=== PATIENT | female | born 1990 | race Caucasian/White ===

== ENCOUNTER 2016-07-23 21:00 | Observation (INO) ==
[2016-07-23 21:42] LABS: Bilirubin,Urine Negative (Negative); Blood,Urine Negative (Negative); Clarity,Urine Cloudy (Clear); Color,Urine Yellow (Yellow); Glucose,Urine (UA) Normal (Normal); Ketones,Urine Negative (Negative); Leukocyte Esterase,Urine Moderate (Negative); Nitrite,Urine Negative (Negative); PH,Urine 6.5 pH Units (5.0-8.0); Protein,Urine Negative (Neg-Trace); Specific Gravity,Urine 1.006 (1.010-1.025); Urobilinogen,Urine Normal (Normal)
[2016-07-23 21:43] LABS: Bacteria,Urine Few per hpf (None-Few); Hyaline Casts,Urine None Seen per lpf (None-Few); RBC,Urine 0-3 per hpf (0-3); Squamous Epithelial Cell,Urine Many per lpf (None-Few)
--- NOTE | 2016-07-27 15:43 | Discharge Summary ---
Date of Encounter: 07/23/16 Time of Encounter: 23:30 - Discharge Diagnosis (1) 36 weeks gestation of Priority: Secondary Status: Acute (2) uterine contractions in third trimester, antepartum Priority: Primary Status: Resolved - Discharge Medications Home Medications: Ferrous Sulfate 1 tab PO DAILY 07/23/16 [History] Flintstones Complete 1 tab PO DAILY 07/23/16 [History] Allergies/Adverse Reactions: Allergies No Known Allergies Allergy (Verified 07/24/16 22:33) Data Procedures and tests throughout hospitalization: Laboratory Tests 07/23/16 21:20 Urine Color Yellow Urine Clarity Cloudy A Urine pH 6.5 Ur Specific [place] 1.006 L Urine Protein Negative Urine Glucose (UA) Normal Urine Ketones Negative Urine Blood Negative Urine Nitrite Negative Urine Bilirubin Negative Urine Urobilinogen Normal Ur Leukocyte Esterase Moderate H Urine Microscopic RBC 0-3 Urine Microscopic WBC 5-15 H Ur Squamous Epith Cells Many H Urine Bacteria Few Hyaline Casts None Seen Ur Culture Indicated? YES A Date of admission: 07/23/16 21:00 Primary care physician: PCP NO - Patient Status Disposition: Home, Self-Care Condition: Good Functional capacity at discharge: independent ambulation Overall status at discharge: patient is progressing back to baseline - Discharge Instructions Follow Up With: NO,PCP [Primary Care Provider] - Additional Instructions: LABOR AND DELIVERY DISCHARGE INSTRUCTIONS Signs and Symptoms to be Reported to your Doctor Immediately: * Sudden gush, continuous or intermittent lead of fluid from vagina (note the time of gush and color of fluid) * Onset of bright red vaginal bleeding with or without pain (if you had a vaginal exam during this visit you may notice some dark red spotting. This is normal.) * Lower abdominal cramping or backache that is premenstrual-like feeling. * More than 6 contractions in one hour. * Burning during urination, having to urinate more frequently or pain in your mid-back. * A change in the baby's activity. This could be an increase or decrease in activity. * Severe headache which does not go away with tylenol. * Sudden swelling in the face, hands, arms and/or legs. * Upper abdominal pain - sometimes associated with heartburn or nausea and is not relieved by Maalox, Mylanta or Tums. * Dizziness or blurred vision or visual disturbances (seeing stars/lights). * Kick Counts One hour after a meal, lay down on one side in a quiet place. Count the number of keiko the baby moves during an hour. If less than 6 movements, notify your physician. Diet: *Force fluids - 8-10 tall glasses of fluid per day. May include popsicles and jello. *Limit caffeine - this includes chocolate, coffee, tea, any soft drink containing such as all anitha, Jero Yellow and Mountain Dew - Diet and Activity Activity: increase activity as tolerated Diet: advance to your usual diet Hospital Course DOCUMENT REVIEW ATTORNEY Time Attestation: Total time spent providing and/or coordinating discharge services: Exam - Constitutional Vitals: per nursing - VTE Reasons for not Prescribing Prophylaxis: Treatment not Indicated - Low risk for VTE - Attending Attestation kathryn zarate md facog
== END 2016-07-23 23:36 | disposition home or self-care (01) ==
LOC: 1NENULAB
PROVIDERS: ADMIT Obstetrics & Gynecology; ATTEND Obstetrics & Gynecology

== ENCOUNTER 2016-07-24 22:25 | Observation (INO) ==
--- NOTE | 2016-07-25 | OB/GYN History & Physical ---
Date of Encounter: 07/25/16 Time of Encounter: 23:55 Assessment and Plan (1) First in adolescent 16 years of age or older in third trimester Status: Acute (2) 36 weeks gestation of Status: Acute (3) uterine contractions in third trimester, antepartum Status: Acute Patient was observed for 3 hours allowed to ambulate for one of those hours. She had made no cervical change from admission and will be discharged home labor precautions given and instructed to return to labor and delivery if contractions get more comfortable or keep scheduled appointment in the office History of Present Illness HPI: Ms. Domingo is a 25 year old female 1 para 0 at 36-6/7 weeks by last menstrual period equal to a 12-5/7 week ultrasound who presents to labor and delivery with complaint of contractions every 2-3 minutes with intense vaginal pressure. Patient was here last night with similar complaints was not making any cervical change and was discharged home. Patient did have intercourse earlier this evening. Patient does not appear to be uncomfortable when I talked on the phone and does not appear to be uncomfortable until family is around that she acts miserable. She is valarie every 2 minutes issues during this last night also. Patient was 1 cm earlier in the week was 2 cm last night and is 2-3 cm now. Patient does live 45 minutes to an hour from the hospital did recommend we get her up and walk around for a while to make sure she is not making any cervical change before we possibly sent home or admit. She denies any leaking of fluid vaginal bleeding or discharge. Patient does have a history of a left nephrectomy only has one kidney showing signs of hydronephrosis. We would benefit with the maternal- medicine Department to determine that the patient needs to be delivered early. Past Med Surg Social Fam HX - Past Medical History Medical history: no medical history Psychiatric history: no psych history - Past Surgical History Surgical History: other (Left nephrectomy) - Social History Smoking Status: Never smoker Smokeless Tobacco Status: No Alcohol use: none Drug use: none Occupational status: employed Current living situation: Home - Independent Activity Level: Independent ambulation Recent Out of Country Travel Within the Last 8 Weeks: No Exposure or Possible Exposure to Illness During Travel: No - Family History Maternal Grandmother Adopted: No Living Status: Still Living Hx Family Cardiac Disorders: Yes (HTN) Hx Family Respiratory Disorders: No Hx Family Cancer: No Hx Family GI Disorders: No Hx Family Endocrine Disorder: No Hx Family Neuromuscular Disorders: No Hx Family Neurologic Disorders: No Hx Family HEENT Disorders: No Hx Family Autoimmune Disorders: No Obstetrical History - Pregnancies : 1 Para: 0 Medications and Allergies Ferrous Sulfate 1 tab PO DAILY 07/23/16 [History] Flintstones Complete 1 tab PO DAILY 07/23/16 [History] Allergies No Known Allergies Allergy (Verified 07/24/16 22:33) Review of System OB All systems PM: reviewed and no additional remarkable complaints except as stated - Genitourinary Genitourinary: other (Contractions every 10 minutes feeling vaginal pressure) Exam - Constitutional Constitutional: well developed, well nourished, average body habitus, mild distress - HEENT HEENT: PERRL, Mucus Membranes Moist - Neck Neck exam: full ROM - Lungs Respiratory exam: CTAB - Cardiovascular Cardiovascular exam: RRR - Abdomen Abdomen: Present: gravid - Extremities Extremities exam: full ROM - Cervix Dilation: 2 (2-3) Effacement: 80 Station: -2 - Comments Comments: heart tones 140s reactive contractions every 2 minutes Results All other labs normal. - VTE Reasons for not Prescribing Prophylaxis: Treatment not Indicated - Low risk for VTE
== END 2016-07-25 01:15 | disposition home or self-care (01) ==
LOC: 1NENULAB
PROVIDERS: ADMIT Obstetrics & Gynecology; ATTEND Obstetrics & Gynecology

== ENCOUNTER 2016-08-05 22:53 | Observation (INO) ==
--- NOTE | 2016-08-05 23:43 | OB/GYN Progress Note ---
Date of Encounter: 08/05/16 Time of Encounter: 23:40 - Assessment and Plan (1) Fall Current Visit: Yes Status: Acute -Dr. Nj patient. -Sounds more like an environmental factor of fall-lightheaded, hot shower, slipping than actual pathological reason for fall. -Denies cardiac history. No afib, carotid bruits. States she might have hit head -no visible sign or pain with palpation of head or neck. No pain in elbow. Mild pain in R paraspinal muscles. No bruising and patient able to sit up without difficulty - evaluation WNL, BP normalized. Cervix dialation same as last visit 3cm. -Patient feels comfortable being discharged home. Mother in room states that she will watch her. -Evaluate for anemia/reasons for lightheadedness, last H and H 9.8, will check electrolytes, and mom is 0 negative, so will evaluate for maternal- blood mixing. Plan -Labs: H&H, BMP, KB test -Recheck cervix in 1 hour for change -[place], BP -Discharge home under close supervision of mother. Qualifiers: Encounter type: initial encounter Qualified Code(s): W19.XXXA - Unspecified fall, initial encounter (2) 38 weeks gestation of Current Visit: Yes Status: Acute Subjective - Subjective Principal diagnosis: Fall Interval history: 26F, , 38w 5d, GBS negative, HPV positive, O negative, PMH L nephrectomy presents to be evaluated after recent fall. 3 hours ago patient was taking a hot shower and washing her face when she felt light headed and fell back in the shower, landing on her R elbow and R side of her back. She called her mom and she helped her up then brought her to be evaluated. This is her first episode. Denies LOC. States she thought she might have hit her head. Admits to frontal headache and R back pain that is bearable and not getting worse. Denies blurry vision, trouble hearing, neck pain, CP, SOB, abdominal pain, urinary problems. Denies cardiac history. She is resting comfortably in bed and blood pressure decreased from 140/80 to 120/64. She feels baby moving. Antepartum ROS: movement normal, contractions, no loss of fluid, no vaginal bleeding Objective - Vital Signs Vital Signs: Intake and Output 08/05/16 08/05/16 08/05/16 07:59 15:59 23:59 Other: Weight 59.6 kg Patient Weight 08/05/16 23:59 Weight 59.6 kg - Exam FHR: auscultation normal Auscultation: bilateral: normal Abdomen: Present: normal appearance, soft, gravid. Absent: tenderness Uterus: Present: normal Cervical dilation: 3cm per nurse Cervix effacement: 80% per nurse
[2016-08-06 00:10] LABS: Basophils # 0.1 K/mcL (0.0-0.2); Basophils % 0.5 %; Eosinophils # 0.2 K/mcL (0.0-0.6); Eosinophils % 1.4 %; Hemoglobin 11.4 g/dL (11.5-15.4); Immature Granulocytes % 1.7 % (0-4); Lymphocytes # 2.6 K/mcL (0.6-4.6); Mean Corpuscular HGB Conc 33.5 g/dL (31.6-35.5); Mean Corpuscular Hemoglobin 28.4 pg (28.0-33.3); Mean Corpuscular Volume 84.6 fL (83.0-100.0); Mean Platelet Volume 9.4 fL (9.4-12.4); Monocytes # 0.7 K/mcL (0.0-1.3); Monocytes % 5.5 %; Neutrophils # 9.1 K/mcL (1.6-8.9); Platelet Count 326 K/mcL (140-400); Red Blood Count 4.02 M/mcL (3.82-4.97); Red Cell Distribution Width 13.7 % (11.5-14.5); Segmented Neutrophils % 70.9 %
[2016-08-06 00:17] LABS: BUN/Creatinine Ratio 8 (6-26); Blood Urea Nitrogen 6 mg/dL (7-20); Calcium 8.8 mg/dL (8.6-10.8); Carbon Dioxide 19 mEq/L (19-29); Chloride 109 mEq/L (98-109); Glucose 85 mg/dL (70-99); Osmolality,Calculated 283 (280-300); Potassium 3.5 mEq/L (3.5-4.5); Sodium 138 mEq/L (136-145); eGFR For African Americans > 60 (> 60); eGFR For Non-African Americans > 60 (> 60)
[2016-08-06 01:09] LABS: Kleihauer-Betke-Fet Hgb Qnt 0 mL FMH (0-0)
--- NOTE | 2016-08-06 01:55 | OB/GYN Progress Note ---
Date of Encounter: 08/06/16 Time of Encounter: 01:53 - Assessment and Plan (1) Non-stress test reactive on surveillance Current Visit: Yes Status: Acute heart tracing evaluated per request nursing staff. Category 1 heart tracing is noted. (2) Fall Current Visit: Yes Status: Acute We will monitor per protocol Qualifiers: Encounter type: initial encounter Qualified Code(s): W19.XXXA - Unspecified fall, initial encounter (3) 38 weeks gestation of Current Visit: Yes Status: Acute Subjective - Subjective Interval history: Called by nursing staff to review heart tracing. heart tracing reveals baseline to be in the 120 with accelerations to 170. Patient is having contractions with no decelerations. heart tracing is consistent with category 1. Discussed with nursing staff. Objective - Vital Signs Vital Signs: Intake and Output 08/05/16 08/05/16 08/06/16 15:59 23:59 07:59 Other: Weight 59.6 kg - Exam FHR: category 1 - Labs Labs: Abnormal lab results WBC 12.8 K/mcL (4.3-11.1) H 08/05/16 23:33 Hgb 11.4 g/dL (11.5-15.4) L 08/05/16 23:33 Hct 34.0 % (35.3-44.9) L 08/05/16 23:33 Neutrophils # 9.1 K/mcL (1.6-8.9) H 08/05/16 23:33 BUN 6 mg/dL (7-20) L 08/05/16 23:33
--- NOTE | 2016-08-06 02:55 | OB/GYN Progress Note ---
Date of Encounter: 08/06/16 Time of Encounter: 02:53 - Assessment and Plan (1) Fall Current Visit: Yes Status: Acute -Dr. Nj patient. -Sounds more like an environmental factor of fall-lightheaded, hot shower, slipping than actual pathological reason for fall. -Denies cardiac history. No afib, carotid bruits. States she might have hit head -no visible sign or pain with palpation of head or neck. No pain in elbow. Mild pain in R paraspinal muscles. No bruising and patient able to sit up without difficulty - evaluation WNL, BP normalized. Cervix dialation same as last visit 3cm. -Patient feels comfortable being discharged home. Mother in room states that she will watch her. -Evaluate for anemia/reasons for lightheadedness, last H and H 9.8, will check electrolytes, and mom is 0 negative, so will evaluate for maternal- blood mixing. Plan -Labs: H&H, BMP, KB test -Recheck cervix in 1 hour for change -[place], BP -Discharge home under close supervision of mother. Qualifiers: Encounter type: initial encounter Qualified Code(s): W19.XXXA - Unspecified fall, initial encounter (2) 38 weeks gestation of Current Visit: Yes Status: Acute -patient doing well. Cervix has been 3cm dialated and 80% effaced throughout the 4 hours. She feels baby. Lab values discussed. Patient would like to go home. Subjective - Subjective Interval history: Patient doing well throughout stay. Resting comfortably in bed. HR WNL and mother feels baby moving. She feels like she is back to baseline. Has no questions or concerns at this time. Would like to go home. Antepartum ROS: movement normal, contractions, no new complaints, no vaginal bleeding Objective - Vital Signs Vital Signs: Intake and Output 08/05/16 08/05/16 08/06/16 15:59 23:59 07:59 Other: Weight 59.6 kg - Labs Labs: Abnormal lab results WBC 12.8 K/mcL (4.3-11.1) H 08/05/16 23:33 Hgb 11.4 g/dL (11.5-15.4) L 08/05/16 23:33 Hct 34.0 % (35.3-44.9) L 08/05/16 23:33 Neutrophils # 9.1 K/mcL (1.6-8.9) H 08/05/16 23:33 BUN 6 mg/dL (7-20) L 08/05/16 23:33
--- NOTE | 2016-08-06 02:59 | Discharge Summary ---
Date of Encounter: 08/06/16 - Discharge Diagnosis (1) Fall Status: Acute Qualifiers: Encounter type: initial encounter Qualified Code(s): W19.XXXA - Unspecified fall, initial encounter (2) 38 weeks gestation of Status: Acute - Discharge Medications Home Medications: Ferrous Sulfate 1 tab PO DAILY 07/23/16 [History] Flintstones Complete 1 tab PO DAILY 07/23/16 [History] Allergies/Adverse Reactions: Allergies No Known Allergies Allergy (Verified 08/05/16 23:07) Data Procedures and tests throughout hospitalization: Laboratory Tests 08/05/16 08/05/16 23:33 23:33 WBC 12.8 H RBC 4.02 Hgb 11.4 L Hct 34.0 L MCV 84.6 MCH 28.4 MCHC 33.5 RDW 13.7 Plt Count 326 MPV 9.4 Immature Gran % 1.7 Seg Neutrophils % 70.9 Lymphocytes % 20.0 Monocytes % 5.5 Eosinophils % 1.4 Basophils % 0.5 Neutrophils # 9.1 H Lymphocytes # 2.6 Monocytes # 0.7 Eosinophils # 0.2 Basophils # 0.1 Volume Blood 0 Sodium 138 Potassium 3.5 Chloride 109 Carbon Dioxide 19 BUN 6 L Creatinine 0.76 Est GFR ( Amer) > 60 Est GFR (Non-Af Amer) > 60 BUN/Creatinine Ratio 8 Glucose 85 Calculated Osmolality 283 Calcium 8.8 Labs on day of discharge: Labs from last 24 hours 08/05/16 08/05/16 23:33 23:33 WBC 12.8 H RBC 4.02 Hgb 11.4 L Hct 34.0 L MCV 84.6 MCH 28.4 MCHC 33.5 RDW 13.7 Plt Count 326 MPV 9.4 Immature Gran % 1.7 Seg Neutrophils % 70.9 Lymphocytes % 20.0 Monocytes % 5.5 Eosinophils % 1.4 Basophils % 0.5 Neutrophils # 9.1 H Lymphocytes # 2.6 Monocytes # 0.7 Eosinophils # 0.2 Basophils # 0.1 Volume Blood 0 Sodium 138 Potassium 3.5 Chloride 109 Carbon Dioxide 19 BUN 6 L Creatinine 0.76 Est GFR ( Amer) > 60 Est GFR (Non-Af Amer) > 60 BUN/Creatinine Ratio 8 Glucose 85 Calculated Osmolality 283 Calcium 8.8 Date of admission: 08/05/16 22:53 Hospital Course LASTING ROOM SUPERVISOR Time Attestation: Total time spent providing and/or coordinating discharge services: - VTE Reasons for not Prescribing Prophylaxis: Treatment not Indicated - Low risk for VTE
== END 2016-08-06 03:05 | disposition home or self-care (01) ==
LOC: 1NENULAB
PROVIDERS: ADMIT Obstetrics & Gynecology; ATTEND Obstetrics & Gynecology

== ENCOUNTER 2016-08-08 08:00 | Inpatient (IN) ==
[2016-08-08] MEDS ORDERED: Naloxone 0.4 MG/ML INJ IVP PRN (08:16)
[2016-08-08] MEDS ORDERED: Famotidine 20 MG/2 ML VIAL IVP PRN (08:16)
[2016-08-08] MEDS ORDERED: Metoclopramide 10 MG/2 ML VIAL IVP PRN (08:16)
[2016-08-08] MEDS ORDERED: *HR* Nalbuphine 20 MG/ML AMPUL IVP PRN (08:19)
[2016-08-08] MEDS ORDERED: Ringers Solution, Lactated 1,000 ML IVC SCH (08:30)
[2016-08-08] MEDS ORDERED: Oxytocin 20 units/ LR 1000 mL 20 UNIT/1,000 ML BAG IVC SCH (08:48)
[2016-08-08 08:51] LABS: Basophils # 0.1 K/mcL (0.0-0.2); Basophils % 0.7 %; Eosinophils # 0.2 K/mcL (0.0-0.6); Eosinophils % 1.4 %; Hematocrit 36.2 % (35.3-44.9); Immature Granulocytes % 1.3 % (0-4); Lymphocytes # 2.5 K/mcL (0.6-4.6); Mean Corpuscular HGB Conc 33.1 g/dL (31.6-35.5); Mean Corpuscular Hemoglobin 27.8 pg (28.0-33.3); Mean Platelet Volume 9.2 fL (9.4-12.4); Monocytes # 0.6 K/mcL (0.0-1.3); Monocytes % 4.6 %; Neutrophils # 9.4 K/mcL (1.6-8.9); Platelet Count 333 K/mcL (140-400); Red Blood Count 4.31 M/mcL (3.82-4.97); Red Cell Distribution Width 13.7 % (11.5-14.5)
--- NOTE | 2016-08-08 09:08 | OB/GYN History & Physical ---
Date of Encounter: 08/08/16 Time of Encounter: 09:10 Assessment and Plan (1) 39 weeks gestation of Current visit: Yes Status: Acute (2) Elective induction of labor planned Current visit: Yes Status: Acute Will start patient on Pitocin and anticipate normal spontaneous vaginal delivery (3) First in adolescent 16 years of age or older in third trimester Current visit: No Status: Acute History of Present Illness HPI: Ms. Domingo is a 26 year old female 1 para 0 at 39-0/7 weeks by last menstrual period equal to a 12-5/7 week ultrasound who presented for induction of labor secondary term with favorable cervix. Patient has been having contractions on and off for the past 2 weeks. Patient was a good 3 cm 90 % -2 in the office earlier in the week. Patient has a history of only having 1 kidney had donated wanted her father in that right kidney showing some signs of hydronephrosis. Because of patient's small stature it was recommended to deliver her around 39 weeks to take pressure off that kidney. Patient continues to have contractions every 2-3 minutes but then not that uncomfortable. She was seen a few days ago she had fallen she was 3-4 cm at that time. She denies any leaking of fluid no vaginal bleeding or discharge good movement. Her GBS status is negative and she is O- Past Med Surg Social Fam HX - Past Medical History Source: patient, old records reviewed Medical history: no medical history Psychiatric history: no psych history - Past Surgical History Surgical History: other (Left nephrectomy) - Social History Smoking Status: Never smoker Smokeless Tobacco Status: No Alcohol use: none Drug use: none Occupational status: employed Current living situation: Home - Independent Activity Level: Independent ambulation Recent Out of Country Travel Within the Last 8 Weeks: No Exposure or Possible Exposure to Illness During Travel: No - Family History Maternal Grandmother Adopted: No Living Status: Still Living Hx Family Cardiac Disorders: No Hx Family Respiratory Disorders: No Hx Family Cancer: No Hx Family GI Disorders: No Hx Family Genitourinary Disorders: No Hx Family Endocrine Disorder: No Hx Family Musculoskeletal Disorders: No Hx Family Neuromuscular Disorders: No Hx Family Neurologic Disorders: No Hx Family HEENT Disorders: No Hx Family Autoimmune Disorders: No Hx Family Reproductive Disorders: No - Additional Family History Additional family history: Family history noncontributory at this time Obstetrical History - Pregnancies : 1 Para: 0 Medications and Allergies Ferrous Sulfate 1 tab PO DAILY 07/23/16 [History] Flintstones Complete 1 tab PO DAILY 07/23/16 [History] Allergies No Known Allergies Allergy (Verified 08/08/16 08:53) Review of System OB All systems PM: reviewed and no additional remarkable complaints except as stated Exam - Vital Signs Vital signs: Initial Vital Signs Temp Pulse Resp BP 99.2 F 83 24 129/78 08/08/16 08:43 08/08/16 08:43 08/08/16 08:43 08/08/16 08:43 - Constitutional Constitutional: well developed, well nourished, no acute distress, average body habitus - HEENT HEENT: Mucus Membranes Moist - Neck Neck exam: full ROM - Lungs Respiratory exam: CTAB - Cardiovascular Cardiovascular exam: RRR - Abdomen Abdomen: Present: gravid - Cervix Dilation: 4 Effacement: 90 Station: 0 Results Result Diagrams: 08/08/16 08:43 Abnormal lab results WBC 12.9 K/mcL (4.3-11.1) H 08/08/16 08:43 MCH 27.8 pg (28.0-33.3) L 08/08/16 08:43 MPV 9.2 fL (9.4-12.4) L 08/08/16 08:43 Neutrophils # 9.4 K/mcL (1.6-8.9) H 08/08/16 08:43 All other labs normal. - VTE Reasons for not Prescribing Prophylaxis: Medical contraindication
[2016-08-08] MEDS ORDERED: *HR* Ropivacaine/PF 0.2% 10 ML AMPUL EP ONE (09:52)
[2016-08-08] MEDS ORDERED: *HR* FentaNYL (PF) 100 MCG/2 ML VIAL EP ONE (09:52)
[2016-08-08] MEDS ORDERED: EPHEDrine 50 MG/ML VIAL IVP PRN (09:52)
[2016-08-08] MEDS ORDERED: Epidural Premix (fent/bupiv) 110 ML EP SCH (10:00)
--- NOTE | 2016-08-08 10:07 | Anesthesia Evaluation PreOp ---
Date of Encounter: 08/08/16 Time of Encounter: 10:05 - Past History Planned Operation: zoey Cardiac History: Denies any Significant Hx Pulmonary History: Denies Any Significant HX PAN DEVULCANIZER HELPER History: Denies Any Significant HX Other Medical History: Renal (nephrectomy-donor), GERD Anesthesia History: No Prior Anesthetic Complications, Past Anesthesia ( nephrectomy), Problems (no complications) : Yes Test: Positive Alcohol Use: none Drug use: none Medications and Allergies Ferrous Sulfate 1 tab PO DAILY 07/23/16 [History] Flintstones Complete 1 tab PO DAILY 07/23/16 [History] Allergies No Known Allergies Allergy (Verified 08/08/16 08:53) - Meds/Allergy Pre-op Review Medications Reviewed: Yes Allergies Reviewed: Yes Beta Blockers on Current Med List: No Anesthesia Results - Labs 08/08/16 08:43 Anesthesia Exam Vital Signs/O2 Sat, Most Current Temp Pulse Resp BP 99.2 F 83 24 129/78 08/08/16 08:43 08/08/16 08:43 08/08/16 08:43 08/08/16 08:43 Height: 5'0" Weight: 59.2 kg NPO (# of Hours): 6 Pain Scale: 1 - HEENT Pupil (Motor): Pupils equal Mallampati: II Teeth: Normal Oral Opening: Greater than 3 - PAN DEVULCANIZER HELPER LOC: Oriented PAN DEVULCANIZER HELPER Motor: Normal RUE, Normal LUE, Normal RLE, Normal LLE, Normal Face PAN DEVULCANIZER HELPER Sensory: Normal: RUE, LUE, RLE, LLE, Face - Cardiac Rhythm: Regular Murmur: None - Pulmonary Breath Sounds: bilateral Clear Respiratory Effort: Symmetrical Anesthesia Assess/Plan ASA Score: 2 Modified [place] Scale for Level of Consciousness: Cooperative, oriented, and tranquil Anesthetic Plan: MAC Monitoring Plan: Standard Monitors (Risk discussed, questions answered, consented)
--- NOTE | 2016-08-08 11:19 | OB Labor Progress Note ---
Date of Encounter: 08/08/16 Time of Encounter: 11:15 Labor Progress Note - Subjective Subjective: Patient doing well feeling contractions but not that uncomfortable yet. - Cervix Cervix: 4/90/0 AROM clear fluid - Heart Tones Heart Tones: FHT's 140's reactive - Fleischmanns Fleischmanns: IUPC inserted contractions every 2-3 min irregular - Plan Plan: continue pitocin anticipate
[2016-08-08] MEDS ORDERED: *HR* Ropivacaine/PF 0.2% 10 ML AMPUL ONE (12:32)
[2016-08-08] MEDS ORDERED: *HR* FentaNYL (PF) 250 MCG/5 ML VIAL ONE (12:33)
[2016-08-08] MEDS ORDERED: Epidural Premix (fent/bupiv) 110 ML EP ONE (12:33)
[2016-08-08] MEDS ORDERED: Ringers Solution, Lactated 1,000 ML ONE (13:10)
[2016-08-08] MEDS ORDERED: Bupivacaine-MPF 0.25% 10 ML VIAL ONE (13:10)
--- NOTE | 2016-08-08 13:28 | Anesthesia Procedures ---
Date of Encounter: 08/08/16 Time of Encounter: 13:26 Procedures: Anesthesia - Epidural/Spinal Patient examined: Yes OB Eval: Gestational age: 39 OB Eval: : 1 OB Eval: Hx Para: 0 OB Eval: Dilated at (cm): 5 OB Eval: Contractions: Non-stressed pattern Consent Obtained: Yes Supplemental Oxygen: None/Room Air Site Prep: Aseptic Technique, Sterile prep and drape, Povidone-Iodine 1% Patient position: upright Local Anesthetic: Lidocaine 1% Amount of Local Anesthetic used: 4 Touhy Needle Gauge: 18 Touhy Needle Depth (cm): 5 Catheter Depth at Skin (cm): 12 (1st cath aspirated heme, reinserted at interspace above) Test Dose (1.5% Lido + Epi): Volume given (mls): 3 Test Dose Result: Negative Loading Dose: Fentanyl (mcg): 100 Loading Dose: Other: ropivicaine .2 10cc Loading Dose Administered: Thru Touhy Needle Infusion Med: 0.125% Bupivacaine w/ 2 mcg/ml Fentanyl Infusion Rate (mls/hr): 14 (PCEA, 5 cc q 30") Catheter Secured in Place: Tegaderm Interspace Used: L2-L3 Loss of Resistance (SANJAY): Yes Blood: Yes (first cath, negative second) CSF: No Paresthesia: No Procedure: aseptic throughout, L3-4 cath aspirated heme, reinserted cath L2-3 clear, negative test tolerted well, no complications, epidural relieving pain Vitals + FHT's: 122/78 68 fht 123
--- NOTE | 2016-08-08 16:07 | OB Labor Progress Note ---
Date of Encounter: 08/08/16 Time of Encounter: 16:00 Labor Progress Note - Subjective Subjective: Patient still very comfortable with epidural - Cervix Cervix: 8-9/100/+1 - Heart Tones Heart Tones: heart tones 140s reactive - Point View Point View: Contractions every 2 minutes - Plan Plan: Anticipate normal spontaneous vaginal delivery
[2016-08-08] MEDS ORDERED: Lidocaine 1% 20 ML MDV ONE (18:06)
--- NOTE | 2016-08-08 18:36 | OB/GYN Procedure Note ---
Delivery - Delivery Date: 08/08/16 Provider: Johnathan Nj Intrapartum events: none Delivery induction: oxytocin Delivery augmentation: rupture of membranes Delivery monitor: external FHT, external uterine, internal uterine Anesthesia: local, epidural Estimated Blood Loss: 200 - Infant (s) Infant A Infant Delivery Date: 08/08/16 Infant Delivery Time: 17:58 Presentation: vertex Position: DARIEN Route of delivery: Gender: Female Viability: Viable Pounds: 8 Ounces: 9 Weight Gram: 3.88 kg at 1 minute: 8 at 5 mins: 9 Shoulder Dystocia: encountered (total time was 20 sec) Shoulder Dystocia Maneuvers: Jany maneuver, suprapubic pressure Specimens collected: cord blood Placenta: spontaneous Cord: nuchal cord, delivered through nuchal - Repair Episiotomy: none Laceration Description: Periurethral (left), Labial (left) - Complications Delivery complications: none Delivery comments: patient is a 26 yr old female at 39-0/7 weeks who presented to labor and delivery for induction of labor secondary to term with favorable cervix. She has been valarie for the past 2 weeks and has had 2-3 visits for this. She was valarie every 2 minutes but was not making cervical change. Patient got to 3 cm and has been 3 cm of the since. Patient has a history of only having 1 kidney donated want her family member and last ultrasound did show she was having moderate hydronephrosis. She is a very small person with a large baby and I recommend that 39 weeks go ahead and get her delivered. Patient was brought to labor and delivery noted to be valarie irregularly and was 3-4 cm. She was augmented with Pitocin until contractions are regular and she was artificially ruptured for clear fluid. She was internalized recommend monitor contractions better. She received an epidural patient progressed appropriately. She became complete and pushed for less than 30 minutes delivering a viable female infant in right occiput anterior presentation at 1758. Shoulder dystocia was encountered Jany and suprapubic was used to get the anterior shoulder total duration was approximately 20 seconds. Once we had the shoulders delivered if it was then fully delivered and placed on the mother's abdomen, she did have a nuchal cord 1 around the abdomen which was delivered through. Once the cord it stopped pulsating cord was clamped and cut. Cord blood was collected. Infant weight was 8 lbs. 9 oz, Apgars were 8 at 1 minute, 9 at [address] Nj, anesthesia epidural local, estimate the blood loss was 200 mL. Placenta delivered spontaneously 3 vessel cord. Patient did have a left periurethral laceration which extended up the labia at the superior aspect. This was repaired with a 4-0 Vicryl in the usual fashion. Cervix and vagina was visualized intact. Patient tolerated the delivery well she will be observed for 2 hours before being taken floor. - Disposition Mom disposition: stable in LDR disposition: stable in LDR
[2016-08-08] MEDS ORDERED: *HR* OxyCODONE Immed Rel 5 MG TABLET PO PRN ×2 (19:49)
[2016-08-08] MEDS ORDERED: Measles/Mumps/Rubella Vacc 0.5 ML VIAL SQ PRN (19:49)
[2016-08-08] MEDS ORDERED: Oxytocin 20 units/ LR 1000 mL 20 UNIT/1,000 ML BAG IVC ONE (19:49)
[2016-08-08] MEDS ORDERED: Oxytocin 20 units/ LR 1000 mL 20 UNIT/1,000 ML BAG IV SCH (19:49)
[2016-08-08] MEDS ORDERED: Acetaminophen 325 MG TABLET PO PRN (19:49)
[2016-08-08] MEDS ORDERED: Rho Immune Globulin 1,500 UNIT SYRINGE IM PRN (19:49)
[2016-08-08] MEDS ORDERED: Ondansetron 4 MG/2 ML VIAL IVP ONE (20:14)
[2016-08-09 04:45] LABS: Basophils # 0.1 K/mcL (0.0-0.2); Basophils % 0.4 %; Eosinophils % 0.2 %; Hematocrit 30.7 % (35.3-44.9); Immature Granulocytes % 0.7 % (0-4); Lymphocytes # 2.2 K/mcL (0.6-4.6); Lymphocytes % 11.2 %; Mean Corpuscular HGB Conc 33.6 g/dL (31.6-35.5); Mean Corpuscular Hemoglobin 28.7 pg (28.0-33.3); Mean Corpuscular Volume 85.5 fL (83.0-100.0); Mean Platelet Volume 9.5 fL (9.4-12.4); Monocytes # 1.1 K/mcL (0.0-1.3); Monocytes % 5.7 %; Neutrophils # 16.3 K/mcL (1.6-8.9); Platelet Count 240 K/mcL (140-400); Red Blood Count 3.59 M/mcL (3.82-4.97); Red Cell Distribution Width 13.7 % (11.5-14.5); Segmented Neutrophils % 81.8 %
[2016-08-09 04:47] LABS: Hemoglobin 10.3 g/dL (11.5-15.4)
--- NOTE | 2016-08-09 08:48 | Discharge Summary ---
Date of Encounter: 08/09/16 Time of Encounter: 08:46 - Discharge Diagnosis (1) Status post vaginal delivery Priority: Primary Status: Acute Comments: Continue routine care discharge home today follow up with Dr. Nj in 4-6 weeks (2) Breast feeding status of mother Priority: Secondary Status: Acute Comments: support prn - Discharge Medications Home Medications: Flintstones Complete 1 tab PO DAILY 07/23/16 [History] Acetaminophen [Tylenol] 650 mg PO Q6HR PRN #0 tablet 08/09/16 [Rx] Vit/FA 1 each PO DAILY tablet 08/09/16 [Rx] Allergies/Adverse Reactions: Allergies No Known Allergies Allergy (Verified 08/08/16 08:53) Data Procedures and tests throughout hospitalization: Laboratory Tests 08/08/16 08/09/16 08:43 04:34 WBC 12.9 H 19.9 H D RBC 4.31 3.59 L Hgb 12.0 10.3 L D Hct 36.2 30.7 L MCV 84.0 85.5 MCH 27.8 L 28.7 MCHC 33.1 33.6 RDW 13.7 13.7 Plt Count 333 240 MPV 9.2 L 9.5 Immature Gran % 1.3 0.7 Seg Neutrophils % 73.0 81.8 Lymphocytes % 19.0 11.2 Monocytes % 4.6 5.7 Eosinophils % 1.4 0.2 Basophils % 0.7 0.4 Neutrophils # 9.4 H 16.3 H Lymphocytes # 2.5 2.2 Monocytes # 0.6 1.1 Eosinophils # 0.2 0.0 Basophils # 0.1 0.1 Labs on day of discharge: Labs from last 24 hours 08/09/16 08/08/16 04:34 08:43 WBC 19.9 H D 12.9 H RBC 3.59 L 4.31 Hgb 10.3 L D 12.0 Hct 30.7 L 36.2 MCV 85.5 84.0 MCH 28.7 27.8 L MCHC 33.6 33.1 RDW 13.7 13.7 Plt Count 240 333 MPV 9.5 9.2 L Immature Gran % 0.7 1.3 Seg Neutrophils % 81.8 73.0 Lymphocytes % 11.2 19.0 Monocytes % 5.7 4.6 Eosinophils % 0.2 1.4 Basophils % 0.4 0.7 Neutrophils # 16.3 H 9.4 H Lymphocytes # 2.2 2.5 Monocytes # 1.1 0.6 Eosinophils # 0.0 0.2 Basophils # 0.1 0.1 Date of admission: 08/08/16 08:11 Consults: 08/08/16 19:49 Consult to Dimpling Machine Operator [CONS] Routine Comment: Vaginal delivery, consult needed Discharging clinician: Susie Tavarez Anticipated date of discharge: 08/09/16 - Patient Status Disposition: Home, Self-Care Condition: Good Functional capacity at discharge: independent ambulation - Discharge Instructions Follow Up With: Johnathan Nj DO [Partnered Physician] - - Diet and Activity Activity: increase activity as tolerated Diet: regular diet Hospital Course Delivery: Episiotomy: none Laceration: other Other procedures: none complications: none Discharge diagnosis: IUP at term delivered [place] baby: female (breast feeding) Time Attestation: Total time spent providing and/or coordinating discharge services: Time Spent: Less than 30 minutes Exam - Constitutional Vitals: Temp Pulse Resp BP Pulse Ox 98.3 F 73 16 125/76 98 08/09/16 08:14 08/09/16 08:14 08/09/16 08:14 08/09/16 08:14 08/09/16 03:50 General appearance IM: A&O X 3, pleasant, answers questions appropriately - Respiratory Respiratory exam: Present: CTAB - Cardiovascular Cardiovascular exam IM: Present: RRR, +S1, +S2 - GI/Abdominal GI/Abdominal exam IM: normal bowel sounds - Uterine Tone: Firm Uterus Position: 2 Fingers Below Umbilicus, Midline - Extremities Exam Extremities exam IM: Present: full ROM, normal capillary refill, normal inspection - Neurological Exam Neurological exam: alert, oriented X3, reflexes normal
[2016-08-09] MEDS ORDERED: NON-FORMULARY MEDICATION 1 EACH EACH (Ferrous Sulfate 1 TAB) PO SCH (09:00)
[2016-08-09] MEDS ORDERED: Prenatal Vit/FA 1 EACH TABLET PO SCH (09:00)
[2016-08-09] MEDS ORDERED: FLINTSTONES COMPLETE PO SCH (09:00)
[2016-08-09 15:50] VITALS: BP 145/86
== END 2016-08-09 19:15 | disposition home or self-care (01) | DRG 560 ==
LOC: 1NENULAB 08:11 → 1NENUOBS 21:15
PROVIDERS: ADMIT Obstetrics & Gynecology; ATTEND Obstetrics & Gynecology